=== PATIENT | male | born 1995 | race Caucasian/White ===

== ENCOUNTER 2016-07-25 21:46 | Emergency (ER) | payer OTHER ==
[~2016-07-25] VITALS: Ht 172.7 cm; Wt 84.5 kg
[~2016-07-25 21:46] MED LIST: AMOX1TAB67 PO
[2016-07-25 21:49] VITALS: Ht 172.7 cm; Wt 84.5 kg
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
[2016-07-25] MEDS ORDERED: IBUPROFEN 600 MG TAB PO ONE (23:00)
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
[2016-07-25] MEDS ORDERED: IBUP-1542 PO (23:35)
[2016-07-25] MEDS ORDERED: CYCL5TAB PO (23:35)
== END 2016-07-26 00:01 | disposition home or self-care (01) ==
LOC: FTE 21:46
DX: S16.1XXA Strain of muscle, fascia and tendon at neck level, initial encounter (principal); S43.402A Unspecified sprain of left shoulder joint, initial encounter; S90.32XA Contusion of left foot, initial encounter; V49.40XA Driver injured in collision with unspecified motor vehicles in traffic accident, initial encounter
CPT/HCPCS: 72040; 73630; Z7502; Z7610

== ENCOUNTER 2017-07-02 15:09 | Emergency (ER) | END 2017-07-02 17:31 | disposition home or self-care (01) ==